=== PATIENT | male | born 1975 | race Caucasian/White ===

== ENCOUNTER 2022-02-02 06:10 | Emergency (ER) | payer OTHER, SELFPAY ==
[2022-02-02 06:15] VITALS: BMI 27.8
[2022-02-02 06:17] VITALS: BP 132/84; PULSE 85; RESP 16; TEMP 36.7; O2SAT 96
--- NOTE | 2022-02-02 06:22 | XRR_ITS ---
PROCEDURE INFORMATION: Exam: XR Right Ankle Exam date and time: 02/02/2022 7:34 AM Age: 46 years old Clinical indication: Injury or trauma; Fall; Fracture, traumatic; Closed fracture; Ankle; Right; Malleolus, lateral; Additional info: Pain TECHNIQUE: Imaging protocol: Radiologic exam of the Right ankle. Views: 3 or more views. COMPARISON: No relevant prior studies available. FINDINGS: Bones/joints: Acute nondisplaced horizontal fracture of the right distal fibula lateral malleolus just below the level of the ankle mortise. No dislocation. Soft tissues: Lateral right ankle soft tissue swelling. XR/XR ankle RT min 3V* [id number] IMPRESSION: Acute nondisplaced horizontal fracture of the right distal fibula lateral malleolus just below the level of the ankle mortise.
--- NOTE | 2022-02-02 06:22 | W.ED.EXTPRO ---
HPI - Extremity Problem General: Chief complaint: Extremity Injury, Lower Stated complaint: right ankle injury Time Seen by Provider: 02/02/22 06:15 Source: patient Mode of arrival: ambulatory History of Present Illness: 46-year-old male Tori while at work he slipped on a frozen rut getting into a truck rolled his ankle and felt a popping/heard a popping type sensation. Unable to bear weight. When he arrived boot was still in place his friend helped remove it evidently when the nurses doing true triage. Large amount of swelling over the right lateral malleolus no other injuries during the fall. MD Complaint: extremity pain, extremity swelling and joint pain Onset (ago): minute(s) Pain Consistency: constant Location: right (Ankle) Quality: sharp Radiation: distal Relieving factors: immobilization Exacerbating factors: weight bearing and palpation Associated symptoms: Deny arthralgias, chest pain, fever(s), myalgias, rash or short of breath Review of Systems Const: Denies: fever(s), chills, fatigue or malaise ENMT: Denies: throat pain, ear or mastoid pain, nasal discharge or nasal congestion Card: Denies: chest pain or palpitations Resp: Denies: dyspnea, productive cough or non-productive cough GI: Denies: abdominal pain, nausea, vomiting, hematemesis, coffee ground emesis, diarrhea, constipation, bloating, hematochezia or melena : Denies: flank pain, difficulty urinating, dysuria, urinary frequency or urinary urgency Skin/Breast: Denies: rash PFSH ED PFSH: Social History Smoking and tobacco status: never smoked Physical Exam Const: GENERAL APPEARANCE: cooperative and comfortable ORIENTATION/CONSCIOUSNESS: Yes awake, Yes oriented to person, Yes oriented to place and Yes oriented to time HENMT: COMMON NORMALS: normocephalic, atraumatic and hearing grossly normal bilaterally HEAD & SCALP: normocephalic and atraumatic Resp: COMMON NORMALS: normal respiratory effort, No retractions, No use of accessory muscles and clear to auscultation bilaterally AUSCULTATION: clear to auscultation bilaterally Cardio: COMMON NORMALS: regular rate, regular rhythm and No murmurs present (Cardio) RATE: regular rate RHYTHM: regular rhythm GI: COMMON NORMALS: Soft to palpation and No hepatosplenomegaly present AUSCULTATION: Yes normoactive bowel sounds PALPATION: Yes Soft to palpation, No Tenderness to palpation present (GI), No Guarding due to palpation present (GI) and Yes No hepatosplenomegaly present Extremity: COMMON NORMALS: normal to inspection, capillary refill normal, no clubbing, cyanosis or edema, no calf tenderness and no pedal edema OTHER: Right ankle lateral malleolus significant swelling exquisite tenderness on palpation Neuro: SENSORIUM/ORIENTATION: Yes oriented to person, Yes oriented to place and Yes oriented to time Skin: COMMON NORMALS: no rashes or lesions noted GENERAL SKIN EXAM: no rashes or lesions noted Course Vital Signs: Vital signs: Vital Signs Temperature 98.1 F 02/02/22 06:17 Pulse Rate 85 02/02/22 06:17 Respiratory Rate 16 02/02/22 06:17 Blood Pressure 132/84 02/02/22 06:17 Pulse Oximetry 96 02/02/22 06:17 Oxygen Delivery Me thod 02/02/22 06:17 MDM - Extremity (Nontraumatic) Medical Decision Making Distal fibula fracture splint placed nonweightbearing discharged home with hydrocodone for pain follow-up with Ortho through case management. Return if is further problems Medical Records I reviewed the patient's medical records. Lab Data I reviewed the patient's lab results. Radiology Impressions Ankle X-Ray 02/02/22 06:22 IMPRESSION: Acute nondisplaced horizontal fracture of the right distal fibula lateral malleolus just below the level of the ankle mortise. Discharge Plan Discharge Patient Disposition: Home Clinical Impression: Fracture of distal end of right fibula Condition: Stable Prescriptions: New hydrocodone-acetaminophen 5-325 mg tablet 1 tab PO Q6H PRN (Reason: pain) Qty: 15 0RF Discharge Orders: Discharge ED (Routine); Ordered 02/02/22 Ordered By: Zenon Garces Discharge Diet: Usual diet Discharge Activity: Limit activity as instructed Patient Instructions: Opioid Safety, Pain Management Activity Restrictions/Additional Instructions: You were seen for ankle pain you are found to have a distal fibula fracture no weightbearing on the right leg. Maintain and the splint and use crutches until cleared by orthopedics. Case management will make arrangements for you to have follow-up with orthopedics. Coding Level of Care Code ED Health Program Analyst for Jennifer Fuentes
--- NOTE | 2022-02-02 11:18 | DCPLANNER ---
Addendum entered by Isidra Nix 02/05/22 09:38: bilingual account manager received the following message from the ortho clinic regarding follow up appointment: Patient is seeing someone in [place] Original Note: bilingual account manager had message to schedule a follow up appointment for patient with podiatry. bilingual account manager sent patients information to the front office staff at ortho. Patients information will be printed and reviewed. Clinic will call patient with appointment information.
== END 2022-02-02 08:35 | disposition home or self-care (01) ==
PROVIDERS: Emergency Provider Family Medicine
DX: S82.831A Other fracture of upper and lower end of right fibula, initial encounter for closed fracture (principal); X50.1XXA Overexertion from prolonged static or awkward postures, initial encounter
CPT/HCPCS: 73610; 99283

== ENCOUNTER → 2022-02-03 09:08 | Outpatient (BNVA) | payer OTHER, SELFPAY | PROVIDERS: Visit Provider Registered Nurse | DX: Z02.6 Encounter for examination for insurance purposes (principal) | CPT/HCPCS: 80307 ==

== ENCOUNTER 2023-02-09 06:48 | Emergency (ER) | payer OTHER, SELFPAY ==
--- NOTE | 2023-02-09 | XRR_ITS ---
PROCEDURE INFORMATION: Exam: XR Right Forearm Exam date and time: 02/09/2023 7:23 AM Age: 47 years old Clinical indication: Pain; Lower or forearm; Right TECHNIQUE: Imaging protocol: Radiologic exam of the right forearm. Views: 2 views. COMPARISON: No relevant prior studies available. FINDINGS: Bones/joints: There is a comminuted fracture of the distal radial metaphysis which extends through the articular surface at 2 sites. There is no displacement of the articular surface. There is mild dorsal impaction of the radial metaphysis and mild dorsal angulation of the distal radial articular surface. There is a minimally displaced fracture through the base of the ulnar styloid process. Normal radioulnar and radiocarpal alignment is maintained. The proximal radius and ulna are intact. The elbow is unremarkable but suboptimally evaluated. Soft tissues: There is soft tissue edema in the distal forearm. XR/XR forearm RT 2V [id number] IMPRESSION: 1. Comminuted nondisplaced dorsally impacted intra-articular fracture of the distal radius. 2. Mildly displaced fracture of the ulnar styloid process.
== END 2023-02-09 09:07 | disposition home or self-care (01) ==
PROVIDERS: Emergency Provider Family Medicine
DX: S52.571A Other intraarticular fracture of lower end of right radius, initial encounter for closed fracture (principal); S52.611A Displaced fracture of right ulna styloid process, initial encounter for closed fracture; X58.XXXA Exposure to other specified factors, initial encounter
CPT/HCPCS: 29125; 73090; 99283

== ENCOUNTER 2024-05-21 17:38 | Emergency (ER) | payer BC, SELFPAY ==
[2024-05-21 17:42] VITALS: BP 126/81; PULSE 75; RESP 18; TEMP 36.7; O2SAT 99; BMI 25.7
--- NOTE | 2024-05-21 18:11 | CTR_ITS ---
PROCEDURE INFORMATION: Exam: CT Abdomen And Pelvis Without Contrast Exam date and time: 05/21/2024 5:41 PM Age: 48 years old Clinical indication: Nausea and vomiting; Abdominal pain; Localized; C/O left flank pain with n/v. History of stones. ; Additional info: L flank pain TECHNIQUE: Imaging protocol: Computed tomography of the abdomen and pelvis without contrast. Radiation optimization: All CT scans at this facility use at least one of these dose optimization techniques: automated exposure control; mA and/or kV adjustment per patient size (includes targeted exams where dose is matched to clinical indication); or iterative reconstruction. COMPARISON: No relevant prior studies available. RADIATION DOSE METRICS: Total DLP (mGy-cm): 570.63 FINDINGS: Lungs: 5 mm calcified granuloma in the right middle lobe. Liver: Normal. No mass. Gallbladder and biliary ducts: Normal. No calcified stones. No ductal dilation. Pancreas: Normal. No ductal dilation. Spleen: Small calcified granuloma in the spleen. Adrenal glands: Normal. No mass. Kidneys and ureters: There is mild left hydronephrosis and hydroureter with a 4 mm obstructing calculus in the proximal ureter. 2 mm nonobstructing calculus in the lower pole of the left kidney. 2 mm nonobstructing calculus in the midpole of the right kidney. Stomach and bowel: Unremarkable. No obstruction. No mucosal thickening. Appendix: No evidence of appendicitis. Intraperitoneal space: Unremarkable. No free air. No significant fluid collection. Vasculature: Unremarkable. No abdominal aortic aneurysm. Lymph nodes: Unremarkable. No enlarged lymph nodes. Urinary bladder: The urinary bladder is decompressed. Reproductive: Unremarkable as visualized. Bones/joints: Unremarkable. No acute fracture. Soft tissues: Unremarkable. CT/CT kidney stone [id number] IMPRESSION: 1. Mild left-sided hydronephrosis with a 4 mm obstructing calculus within the proximal ureter. 2. Bilateral nephrolithiasis. 3. Evidence of prior granulomatous disease.
[2024-05-21 18:45] LABS: Basophils % 0.4 %; Eosinophils # 0.1 10^3/uL (0.0-0.8); Eosinophils % 0.8 %; Hematocrit 43.9 % (37-53); Lymphocytes # 0.7 10^3/uL (0.8-4.8); Lymphocytes % 9.6 %; Mean Corpuscular HGB Conc 33.9 g/dL (30-55); Mean Corpuscular Hemoglobin 31.6 pg (27-33); Mean Corpuscular Volume 93.2 fl (82-101); Mean Platelet Volume 11.9 fL (7.4-10.4); Monocytes # 0.3 10^3/uL (0.2-0.9); Monocytes % 4.1 %; Neutrophils # 6.55 10^3/uL (1.8-7.7); Neutrophils % 84.8 %; Nucleated Red Blood Cells % 0 %; Platelet Count 159 10^3/cmm (157-399); Red Blood Count 4.71 10^6/uL (3.85-5.65); Red Cell Distribution Width 11.7 % (12.1-15.1); White Blood Count 7.72 10^3/uL (3.29-11.43)
[2024-05-21 18:56] VITALS: BP 118/74; PULSE 76; O2SAT 98
--- NOTE | 2024-05-21 19:01 | W.ED.MALEGU ---
HPI - Male Genitourinary General: Chief complaint: Urogenital-Male Stated complaint: Lower back pain Time Seen by Provider: 05/21/24 18:38 History of Present Illness: 48-year-old man with a history of kidney stones. He presents with left-sided flank lower back and abdominal pain. He says it started around 4 PM. It is very intense. He is nauseated. Has not vomited. No fever. He has not noticed a change in his urine. No diarrhea. Related Data Previous Rx's ?Medication ?Instructions ?Recorded ondansetron 4 mg disintegrating 4 mg PO Q6H PRN nausea and 05/21/24 tablet vomiting #14 tabs oxycodone-acetaminophen 7.5 mg-325 1 tab PO Q6H PRN pain #10 tabs 05/21/24 mg tablet (Percocet) tamsulosin 0.4 mg capsule (Flomax) 0.4 mg PO DAILY #14 caps 05/21/24 Allergies Allergy/AdvReac Type Severity Reaction Status Date / Time No Known Allergies Allergy Verified 07/09/21 10:16 [facility] ED PFSH: Social History Smoking and tobacco/nicotine status: never used tobacco/nicotine Physical Exam Const: COMMON NORMALS: no acute distress GENERAL APPEARANCE: cooperative; not frail appearing HENMT: COMMON NORMALS: normocephalic, atraumatic and Normal external nose present HEAD & SCALP: normocephalic and atraumatic FACE & SINUS: normal facial exam and face symmetric NOSE: Normal external nose present Eye: COMMON NORMALS: Equal, round and reactive pupils present and EOMs intact bilaterally PUPIL: Yes Equal, round and reactive pupils present Neck/C-Spine: GENERAL: Yes trachea midline Chest: CHEST: Yes Symmetrical chest wall rise Resp: COMMON NORMALS: normal respiratory effort, No retractions, No use of accessory muscles and clear to auscultation bilaterally AUSCULTATION: clear to auscultation bilaterally Cardio: COMMON NORMALS: regular rate and regular rhythm RATE: regular rate RHYTHM: regular rhythm GI: COMMON NORMALS: Normal to inspection, nondistended, normoactive bowel sounds present : BLADDER/KIDNEY EXAM: Yes CVA tenderness on the left Back/Pelvis: GENERAL BACK: Yes CVA tenderness Extremity: COMMON NORMALS: no pedal edema Neuro: JENNY COMA SCALE: document GCS findings Waterfall coma scale eye opening: Spontaneous [place] coma scale verbal response: Orientated [place] coma scale motor response: Obey commands Jenny coma scale total score: 15 SENSORY EXAM: Yes extremities (intact) Psych: COMMON NORMALS: speech normal SPEECH: Yes normal speech Skin: COMMON NORMALS: no rashes or lesions noted GENERAL SKIN EXAM: no rashes or lesions noted Course Vital Signs: Vital signs: Vital Signs Temperature 98.1 F 05/21/24 17:42 Pulse Rate 90 05/21/24 21:47 Respiratory Rate 18 05/21/24 17:42 Blood Pressure 119/68 05/21/24 21:47 Pulse Oximetry 94 05/21/24 21:47 Oxygen Delivery Me thod Room Air 05/21/24 20:30 MDM - Male Medical Decision Making Pain is improved. Urinalysis shows no infection. Blood work is normal. CT shows a 4 mm obstructing proximal ureter stone. Home on Zofran, pain medication, Flomax. To return for no improvement, worsening pain, fever, etc. Referral given for outpatient urology. Lab Data 05/21/24 18:26 05/21/24 18:26 Radiology Impressions Abdomen/Pelvis CT 05/21/24 18:11 IMPRESSION: 1. Mild left-sided hydronephrosis with a 4 mm obstructing calculus within the proximal ureter. 2. Bilateral nephrolithiasis. 3. Evidence of prior granulomatous disease. Laboratory Results WBC 7.72 10^3/uL (3.29-11.43) 05/21/24 18: RBC 4.71 10^6/uL (3.85-5.65) 05/21/24 18:26 Hgb 14.90 g/dL (11.27-16.99) 05/21/24 18:26 Hct 43.9 % (37-53) 05/21/24 18: MCV 93.2 fl (82-101) 05/21/24 18: MCH 31.6 pg (27-33) 05/21/24 18: MCHC 33.9 g/dL (30-55) 05/21/24 18: RDW 11.7 % (12.1-15.1) L 05/21/24 18: Plt Count 159 10^3/cmm (157-399) 05/21/24 18:26 MPV 11.9 fL (7.4-10.4) H 05/21/24 18:26 Neut % (Auto) 84.8 % 05/21/24 18:26 Lymph % (Auto) 9.6 % 05/21/24 18:26 George % (Auto) 4.1 % 05/21/24 18:26 Eos % (Auto) 0.8 % 05/21/24 18:26 Baso % (Auto) 0.4 % 05/21/24 18:26 Neut # (Auto) 6.55 10^3/uL (1.8-7.7) 05/21/24 18:26 Lymph # (Auto) 0.7 10^3/uL (0.8-4.8) L 05/21/24 18:26 George # (Auto) 0.3 10^3/uL (0.2-0.9) 05/21/24 18:26 Eos # (Auto) 0.1 10^3/uL (0.0-0.8) 05/21/24 18:26 Baso # (Auto) 0.0 10^3/uL (0.0-0.1) 05/21/24 18:26 Nucleated RBC % (auto) 0 % 05/21/24 18: Nucleated RBCs # 0.0 /100WBC 05/21/24 18:26 Sodium 141 mmol/L (136-145) 05/21/24 18:26 Potassium 4.3 mmol/L (3.5-5.1) 05/21/24 18: Chloride 105 mmol/L (98-107) 05/21/24 18:26 Carbon Dioxide 26 mmol/L (22-29) 05/21/24 18:26 Anion Gap 14.3 (5-19) 05/21/24 18:26 BUN 13 mg/dL (6-20) 05/21/24 18:26 Creatinine 1.1 mg/dL (0.7-1.2) 05/21/24 18:26 GFR Calculation 71.8 mL/min (90-130) L 05/21/24 18:26 Glucose 109 mg/dL (65-115) 05/21/24 18:26 Calculated Osmolality 293 mOsm/kg (285-295) 05/21/24 18:26 Calcium 9.8 mg/dL (8.5-10.5) 05/21/24 18: Total Bilirubin 0.6 mg/dL (0.15-1.2) 05/21/24 18: AST 18 U/L (0-40) 05/21/24 18: ALT 12 U/L (0-41) 05/21/24 18: Alkaline Phosphatase 67 U/L (40-130) 05/21/24 18: C-Reactive Protein 3.0 mg/L (0.0-4.9) 05/21/24 18: Total Protein 7.4 g/dL (6.6-8.7) 05/21/24 18: Albumin 4.4 g/dL (3.5-5.2) 05/21/24 18: Globulin 3.0 g/dL (1.3-4.6) 05/21/24 18: Lipase 49 U/L (13-60) 05/21/24 18: Urine Color Yellow (Yellow) 05/21/24 19: Urine Appearance Cloudy (CLEAR) A 05/21/24 19: Urine pH 5.5 (5-7) 05/21/24 19: Ur Specific [place] 1.024 (1.005-1.030) 05/21/24 19: Urine Protein 1+ (Negative) A 05/21/24 19: Urine Glucose (UA) Negative (Normal) 05/21/24 19:30 Urine Ketones 1+ (Negative) H 05/21/24 19: Urine Blood 3+ (Negative) A 05/21/24 19: Urine Nitrate Negative (Negative) 05/21/24 19: Urine Bilirubin Negative (Negative) 05/21/24 19: Urine Urobilinogen 1.0 mg/dL (Negative) 05/21/24 19: Ur Leukocyte Esterase Trace (Negative) A 05/21/24 19: Urine RBC >100 /hpf (0-2) H 05/21/24 19:30 Urine WBC 0-5 /hpf (0-5) 05/21/24 19:30 Ur Squamous Epith Cells 0-5 /hpf (0-5) 05/21/24 19: Amorphous Sediment Not Reportable 05/21/24 19:30 Urine Bacteria None seen /hpf (NONE) 05/21/24 19:30 Hyaline Casts 2.46 /lpf 05/21/24 19:30 All radiology interpretation(s) finalized by discharge Discharge Plan Discharge Patient Disposition: Home Clinical Impression: Ureterolithiasis Condition: Stable Prescriptions: New oxycodone-acetaminophen [Percocet] 7.5-325 mg tablet 1 tab PO Q6H PRN (Reason: pain) Qty: 10 0RF ondansetron 4 mg tablet,disintegrating 4 mg PO Q6H PRN (Reason: nausea and vomiting) Qty: 14 0RF tamsulosin [Flomax] 0.4 mg capsule 0.4 mg PO DAILY Qty: 14 0RF Discontinued hydrocodone-acetaminophen 5-325 mg tablet 1 tab PO Q6H PRN (Reason: pain) Qty: 15 0RF Discharge Orders: Discharge ED (Routine); Ordered 05/21/24 Ordered By: Manish Rowell Referrals: Edin Corbett [Referring] - 4-7 days Patient Instructions: Kidney Stones (ED), Opioid Safety, Pain Management Print Language: Cypriot Coding Level of Care Code ED Laser Beam Trim Operator for Jennifer Fuentes
[2024-05-21 19:03] LABS: Alanine Aminotransferase 12 U/L (0-41); Albumin Level 4.4 g/dL (3.5-5.2); Alkaline Phosphatase 67 U/L (40-130); Anion Gap 14.3 (5-19); Aspartate Amino Transferase 18 U/L (0-40); Blood Urea Nitrogen 13 mg/dL (6-20); Calcium 9.8 mg/dL (8.5-10.5); Carbon Dioxide 26 mmol/L (22-29); Chloride 105 mmol/L (98-107); Creatinine Clr Calc Pharmacy 92.4669; Glomerular Filtration Rate 71.8 mL/min (90-130); Glucose 109 mg/dL (65-115); Lipase 49 U/L (13-60); Osmolality Calculated 293 mOsm/kg (285-295); Potassium 4.3 mmol/L (3.5-5.1); Sodium 141 mmol/L (136-145); Total Bilirubin 0.6 mg/dL (0.15-1.2); Total Protein 7.4 g/dL (6.6-8.7)
[2024-05-21] MEDS: sodium chloride 0.9% 1,000 ML 999 ML IV (19:14)
[2024-05-21] MEDS: ondansetron 2 mg/ML SDV 2 mL 4 MG IVP (19:17)
[2024-05-21] MEDS: ketorolac 30 mg/mL INJ IVP (19:20)
[2024-05-21 19:21] VITALS: BP 114/73; PULSE 66; O2SAT 97
[2024-05-21] MEDS: HYDROmorphone 0.5 MG/0.5 ML INJ 1 MG IVP ×2 (19:22→21:25)
[2024-05-21 19:50] LABS: Bilirubin Urine Negative (Negative); Blood Urine 3+ (Negative); Glucose Urine UA Negative (Normal); Ketones Urine 1+ (Negative); Leukocyte Esterase Urine Trace (Negative); Nitrate Urine Negative (Negative); Protein Urine 1+ (Negative); Specific Gravity, Urine 1.024 (1.005-1.030); Urine Appearance Cloudy (CLEAR); Urine Color Yellow (Yellow); pH Urine 5.5 (5-7)
[2024-05-21 19:56] LABS: Add Urine Microscopic? YES; Bacteria Urine None Seen /hpf; Hyaline Casts Urine 2.46 /lpf; RBC Urine >100 /hpf (0-2); Squamous Epithelial Cell Urine 0-5 /hpf (0-5); WBC Urine 0-5 /hpf (0-5)
[2024-05-21 20:21] LABS: Add Urine Culture? Yes
[2024-05-21 20:30] VITALS: BP 112/85; PULSE 78; O2SAT 93
[2024-05-21] MEDS: oxyCODONE-APAP 10-325 mg Tablet 2 TAB PO (21:42)
[2024-05-21 21:47] VITALS: BP 119/68; PULSE 90; O2SAT 94
== END 2024-05-21 21:48 | disposition home or self-care (01) ==
PROVIDERS: Emergency Provider Emergency Medicine
DX: N20.1 Calculus of ureter (principal)
CPT/HCPCS: 36415; 74176; 80053; 81001; 83690; 85025; 86140; 87086; 96361; 96374; 96375; 96376; 99285; J1171; J1885; J2405; J7030